=== PATIENT | female | born 1980 | race African-American/Black ===

== ENCOUNTER 2019-09-08 19:48 | Emergency (ER) | payer OTHER ==
[2019-09-08 20:16] VITALS: BP 161/87
[2019-09-08] MEDS ORDERED: Penicillin G Benzathine 1.2MU* 1,200,000 UNITS/2 ML SYR IM ONE (20:22)
--- NOTE | 2019-09-08 20:24 | UC ---
Throat Pain/Nasal Dex HPI - HPI Summary HPI Summary: 39-year-old female who complains of a sore throat for the past 4-5 days. Other family members have had strep. - History of Current Complaint Chief Complaint: UCRespiratory Stated Complaint: SORE THROAT, AND COUGH Time Seen by Provider: 09/08/19 20:04 Hx Obtained From: Patient Hx Last Menstrual Period: last month ?: No Onset/Duration: Gradual Onset Severity: Moderate Pain Intensity: 7 Cough: None Associated Signs & Symptoms: Positive: Fever - Allergies/Home Medications Allergies/Adverse Reactions: Allergies Allergy/AdvReac Type Severity Reaction Status Date / Time No Known Allergies Allergy Verified 09/08/19 20:12 Home Medications: Home Medications Dextromethorphan Polistirex [Delsym] 30 mg PO Q12HR PRN 09/08/19 [History Confirmed 09/08/19] Fluticasone NASAL SPRAY 50MCG* [Flonase NASAL SPRAY 50MCG*] 2 spray BOTH NARES DAILY 09/08/19 [History Confirmed 09/08/19] Guaifenesin/Pseudoephedrne HCl [Guaifenesin and Pseudoeph 60-600 mg] 1 tab PO Q12HR PRN 09/08/19 [History Confirmed 09/08/19] PMH/Surg Hx/FS Hx/Imm Hx Previously Healthy: Yes - Surgical History Surgery Procedure, Year, and Place: c section - Family History Known Family History: Positive: Non-Contributory - Social History Occupation: Student Lives: With Family Alcohol Use: Occasionally Substance Use Type: None Smoking Status (MU): Never Smoked Tobacco Review of Systems All Other Systems Reviewed And Are Negative: Yes Constitutional: Positive: Fever ENT: Positive: Sore Throat Is Patient Immunocompromised?: No Physical Exam Triage Information Reviewed: Yes Appearance: Well-Appearing, Well-Nourished Vital Signs: Initial Vital Signs Temp 99.3 F 09/08/19 20:13 Pulse 90 09/08/19 20:13 Resp 18 09/08/19 20:13 BP 161/87 09/08/19 20:13 Pulse Ox 98 09/08/19 20:13 Vital Signs Reviewed: Yes Eyes: Positive: Conjunctiva Clear ENT: Positive: Hearing grossly normal, Pharyngeal erythema, TMs normal, Tonsillar swelling, Uvula midline. Negative: Trismus, Muffled voice Neck: Positive: Supple, Nontender, Enlarged Nodes @ - Mild bilateral tonsillar lymph node enlargement. Respiratory: Positive: Lungs clear, Normal breath sounds, No respiratory distress, No accessory muscle use Cardiovascular: Positive: RRR, No Murmur, Pulses Normal, Brisk Capillary Refill Abdomen Description: Positive: Nontender, No Organomegaly, Soft. Negative: CVA Tenderness (R), CVA Tenderness (L) Bowel Sounds: Positive: Present Musculoskeletal Exam: Normal Neurological Exam: Normal Psychological Exam: Normal Skin Exam: Normal Throat Pain/Nasal Course/Dx - Course Course Of Treatment: Patient is comfortable here. She prefers to have the penicillin G 1.2 million units injection rather than the oral antibiotic. That was given to her here and she was observed for 15-20 minutes postinjection without any adverse reactions. - Differential Dx/Diagnosis Provider Diagnosis: Strep pharyngitis Discharge ED - Sign-Out/Discharge Documenting (check all that apply): Patient Departure All imaging exams completed and their final reports reviewed: No Studies - Discharge Plan Condition: Fair Disposition: HOME Patient Education Materials: Strep Throat (DC) Forms: *School Release Referrals: No Primary Care Phys,NOPCP [Primary Care Provider] - [facility] [Outside] Additional Instructions: Increase fluids, rest, change her toothbrush in 24 hours. May take Tylenol every 4 hours and alternate with Motrin every 8 hours for fever or pain. Salt water gargles and throat lozenges as needed. Definite follow-up with your primary care provider or the [facility] if no improvement in 3 or 4 days. - Billing Disposition and Condition Condition: FAIR Disposition: Home - Attestation Statements Provider Attestation: This patient was not seen by. I was available for consult. Chart reviewed. TIFFANIE
== END 2019-09-08 20:51 | disposition home or self-care (01) ==
LOC: UCEAST 19:48
DX: J02.0 Streptococcal pharyngitis (principal)
CPT/HCPCS: 87651; 96372; 99201; G0463; J0558

== ENCOUNTER 2020-01-19 11:26 | Emergency (ER) | payer OTHER ==
[2020-01-19 12:04] VITALS: BP 160/89
--- NOTE | 2020-01-19 12:24 | UC ---
Palpitation/Dysrhythmia HP - HPI Summary HPI Summary: 4-year-old woman comes in with a chief complaint of episodes of palpitations. When she has palpitations she does not feel like she's got a pass out. Has no chest pain. - History of Current Complaint Chief Complaint: UCChestPain Stated Complaint: HEART RACING WEAKNESS Time Seen by Provider: 01/19/20 11:59 Hx Last Menstrual Period: last month Pain Intensity: 0 - Allergy/Home Medications Allergies/Adverse Reactions: Allergies Allergy/AdvReac Type Severity Reaction Status Date / Time No Known Allergies Allergy Verified 01/19/20 12:04 Home Medications: Home Medications NK [No Home Medications Reported] 01/19/20 [History Confirmed 01/19/20] PMH/Surg Hx/FS Hx/Imm Hx Previously Healthy: Yes - Surgical History Surgery Procedure, Year, and Place: c section - Family History Known Family History: Positive: Non-Contributory - Social History Alcohol Use: Occasionally Substance Use Type: None Smoking Status (MU): Never Smoked Tobacco Review of Systems All Other Systems Reviewed And Are Negative: Yes Constitutional: Positive: Other - see hpi Skin: Positive: Negative Eyes: Positive: Negative ENT: Positive: Negative Respiratory: Positive: Negative Cardiovascular: Positive: Palpitations Motor: Positive: Negative Neurovascular: Positive: Negative Musculoskeletal: Positive: Negative Neurological/Mental Status: Positive: Negative Psychological: Positive: Negative Is Patient Immunocompromised?: No Physical Exam Triage Information Reviewed: Yes Appearance: Well-Appearing, No Pain Distress, Well-Nourished Vital Signs: Initial Vital Signs Temp 98.0 F 01/19/20 12:00 Pulse 74 01/19/20 12:00 Resp 18 01/19/20 12:00 BP 160/89 01/19/20 12:00 Pulse Ox 100 01/19/20 12:00 Vital Signs Reviewed: Yes Eye Exam: Normal Eyes: Positive: Conjunctiva Clear Neck: Positive: Supple Respiratory: Positive: Lungs clear, Normal breath sounds, No respiratory distress Cardiovascular: Positive: RRR Musculoskeletal: Positive: Strength Intact, ROM Intact, No Edema - no calf tenderness Neurological: Positive: Alert Psychological: Positive: Normal Response To Family, Age Appropriate Behavior Skin Exam: Normal Diagnostics - EKG Cardiac Rate: NL - AT 1135 Cardiac Rhythm: Sinus: Normal - 70BPM Ectopy: None ST Segment: Normal EKG Comparison: Other - LDH by voltage, anterior Q waves possibly due to LVH Palpitations Course/Dx - Differential Dx/Diagnosis Provider Diagnosis: Palpitations, Elevated blood pressure reading Discharge ED - Sign-Out/Discharge Documenting (check all that apply): Patient Departure All imaging exams completed and their final reports reviewed: No Studies - Discharge Plan Condition: Stable Disposition: HOME Patient Education Materials: Heart Palpitations (ED) Forms: *School Release Referrals: [facility] [Provider Group] Slava Rapp DO [Medical Doctor] - Additional Instructions: FOLLOW UP WITH CARDIOLOGY. GO TO THE EMERGENCY DEPARTMENT IF WORSE; CHEST PAIN, SHORTNESS OF BREATH, YOU FEEL LIKE PASSING OUT OR ANY QUESTIONS OR CONCERNS. - Billing Disposition and Condition Condition: STABLE Disposition: Home
[2020-01-19 16:11] LABS: ABS Basophils 0.1 10^3/ul (0-0.2); ABS Eosinophils 0.2 10^3/ul (0-0.6); ABS Lymphocytes 2.8 10^3/ul (1.0-4.8); ABS Monocytes 0.4 10^3/ul (0-0.8); ABS Neutrophils 4.7 10^3/ul (1.5-7.7); Eosinophil % 2.7 %; Hematocrit 34 % (35-47); Hemoglobin 11.3 g/dL (12.0-16.0); Lymphocyte % 33.6 %; Mean Corpuscular HGB Conc 33 g/dL (31-36); Mean Corpuscular Hemoglobin 26 pg (27-31); Mean Corpuscular Volume 79 fL (80-97); Mean Platelet Volume 9.5 fL (7.4-10.4); Platelet Count 341 10^3/uL (150-450); Red Blood Count 4.35 10^6 /uL (3.70-4.87); Red Cell Distribution Width 16 % (10-15); White Blood Count 8.2 10^3/uL (3.5-10.8)
[2020-01-19 16:21] LABS: Albumin 3.7 g/dL (3.2-5.2); Magnesium 1.9 mg/dL (1.9-2.7); Potassium 3.8 mmol/L (3.5-5.0); Total Bilirubin 0.6 mg/dL (0.2-1.0)
[2020-01-19 16:27] LABS: Albumin/Globulin Ratio 1.4 (1-3); EGFR African American 103.6 (>60); EGFR Non-African American 85.6 (>60); Globulin 2.6 g/dL (2-4); Total Protein 6.3 g/dL (6.4-8.9)
[2020-01-19 16:59] LABS: TSH (Thyroid Stimulating Horm) 0.7 mcIU/mL (0.34-5.60)
--- NOTE | 2020-01-20 13:18 | UC ---
- Progress Note Progress Note: PLEASE CALL PATIENT. LABS REVIEWED. CBC WITH MILD ANEMIA WHICH MAY BE BASELINE BUT SHOULD BE FOLLOWED UP. TSH LOW NORMAL. CONSIDER RECHECKING THIS NUMBER SHE MAY BE RELATIVELY HYPERTHYROID WHICH COULD BE CONTRIBUTING TO HER PALPITATIONS. FOLLOW-UP WITH PCP. Course/Dx - Diagnoses Provider Diagnoses: Palpitations, Elevated blood pressure reading Discharge ED - Sign-Out/Discharge Documenting (check all that apply): Post-Discharge Follow Up All imaging exams completed and their final reports reviewed: No Studies - Discharge Plan Condition: Stable Disposition: HOME Patient Education Materials: Heart Palpitations (ED) Forms: *School Release Referrals: [facility] [Provider Group] Slava Rapp DO [Medical Doctor] - Additional Instructions: FOLLOW UP WITH CARDIOLOGY. GO TO THE EMERGENCY DEPARTMENT IF WORSE; CHEST PAIN, SHORTNESS OF BREATH, YOU FEEL LIKE PASSING OUT OR ANY QUESTIONS OR CONCERNS. - Billing Disposition and Condition Condition: STABLE Disposition: Home
== END 2020-01-19 12:35 | disposition home or self-care (01) ==
LOC: UCEAST 11:26
DX: R00.2 Palpitations (principal); I10 Essential (primary) hypertension
CPT/HCPCS: 36415; 80053; 83735; 84443; 85025; 93005; 99211; G0463